=== PATIENT | female | born 1980 | race Two or more races ===

== ENCOUNTER 2021-10-19 18:59 | Emergency (ER) | payer OTHER ==
[~2021-10-19] VITALS: Ht 152.4 cm; Wt 102.1 kg
[2021-10-19] MEDS ORDERED: LEXAPRO20 MG PO (20:00)
== END 2021-10-19 22:52 | disposition home or self-care (01) ==
LOC: ER 18:59
DX: S89.82XA Other specified injuries of left lower leg, initial encounter (principal); S99.812A Other specified injuries of left ankle, initial encounter; S79.812A Other specified injuries of left hip, initial encounter; W19.XXXA Unspecified fall, initial encounter; Y93.89 Activity, other specified; Y92.89 Other specified places as the place of occurrence of the external cause; M25.562 Pain in left knee; Z88.6 Allergy status to analgesic agent; Z88.5 Allergy status to narcotic agent

== ENCOUNTER 2022-02-24 17:03 | Emergency (ER) | payer OTHER ==
[~2022-02-24] VITALS: Ht 152.4 cm; Wt 99.8 kg
[~2022-02-24 17:03] MED LIST: LEXAPRO20 MG PO
== END 2022-02-24 20:33 | disposition home or self-care (01) ==
LOC: ER 17:03
DX: S93.401A Sprain of unspecified ligament of right ankle, initial encounter (principal); S89.92XA Unspecified injury of left lower leg, initial encounter; W19.XXXA Unspecified fall, initial encounter; Y93.9 Activity, unspecified; Y92.9 Unspecified place or not applicable; Y99.9 Unspecified external cause status